=== PATIENT | male | born 1970 | race Caucasian/White ===

== ENCOUNTER 2019-03-15 23:36 | Emergency (ER) | payer SELFPAY ==
[2019-03-16] MEDS ORDERED: HYDROmorphone 1 MG/ML Syringe IVPUSH ONE (00:48)
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
[2019-03-16] MEDS ORDERED: HYDROmorphone 1 MG/ML Syringe IM ONE (01:05)
[2019-03-16] MEDS ORDERED: Sodium Chloride 0.9% 1,000 ML IV SCH (02:00)
--- NOTE | 2019-03-16 08:51 | CT ---
CT chest Technique: Multiple axial sections through the chest were obtained. Intravenous contrast was utilized. Study has been performed as a pulmonary angiogram protocol. Findings: Pulmonary arteries are moderately well opacified. No filling defects are seen to indicate discrete pulmonary embolism. Small hiatal hernia is seen. Small lymph nodes are seen within the mediastinum believed to be within normal limits. Aorta shows a mildly ectatic ascending dimension of 3.5 cm. Descending aorta at the same level measures 2.1 cm. No pericardial thickening is seen. Severe fatty infiltration seen within the liver. Gallbladder appears somewhat dense most likely due to concentrated bile. Incidental deep dependent atelectasis seen posteriorly within both lung bases. No acute parenchymal change is seen. Bone window settings were reviewed which show mild degenerative change within the spine with scoliosis. Several old healed left-sided rib fractures are incidentally noted. Impression: 1. No findings of pulmonary embolism. 2. Marked fatty infiltration within the liver. 3. Other incidental findings. Nothing acute is appreciated. Diagnostic code #3 I agree with preliminary report from [facility], finalized on 03/16/19, 5:10 AM Central Time
--- NOTE | 2019-03-16 08:51 | CR ---
Chest: Two views of the chest were obtained. Comparison: Prior chest x-ray of 03/05/12. Heart size and mediastinum are normal. Lungs show no acute parenchymal change. Scoliosis is present within the spine. Impression: 1. Scoliosis. Nothing acute is appreciated. Diagnostic code #2
== END 2019-03-16 04:45 | disposition home or self-care (01) ==
LOC: JD.ED 23:36
DX: F10.20 Alcohol dependence, uncomplicated (principal); F14.10 Cocaine abuse, uncomplicated; F12.90 Cannabis use, unspecified, uncomplicated; Z21 Asymptomatic human immunodeficiency virus [HIV] infection status; M54.9 Dorsalgia, unspecified; G89.29 Other chronic pain; K76.0 Fatty (change of) liver, not elsewhere classified; Z79.899 Other long term (current) drug therapy; Z88.1 Allergy status to other antibiotic agents; Z88.8 Allergy status to other drugs, medicaments and biological substances; F17.210 Nicotine dependence, cigarettes, uncomplicated
CPT/HCPCS: 36415; 71046; 71275; 80053; 80306; 81001; 83735; 84484; 85007; 85027; 85379; 93005; 96360; 96361; 96372; 99284; J1170; J7040; 93010